=== PATIENT | male | born 1985 | race Caucasian/White ===

== ENCOUNTER 2018-03-15 17:23 | Emergency (ER) | payer SELFPAY ==
[2018-03-15 17:49] VITALS: BP 115/66; TEMP 98.3; O2SAT 98
--- NOTE | 2018-03-15 17:56 | ED.PDOC ---
History of Present Illness - General Chief Complaint: Lower Extremity Injury Time Seen by Provider: 03/15/18 17:48 Source: patient Exam Limitations: no limitations - History of Present Illness Occurred: last week - 4 inch pipe fell onto R foot. Started hurting again today while driving [place]posts Pain - Lower Extremity: moderate: Right Foot Method of Injury: direct blow Improving Factors: immobilization Worsening Factors: movement - weight-bearing Allergies/Adverse Reactions: Allergies NO KNOWN ALLERGY Allergy (Verified 03/15/18 17:49) Home Medications: Ambulatory Orders Tramadol HCl 50 mg PO Q4HR PRN #15 tab 03/15/18 Review of Systems - Review of Systems Constitutional: States: no symptoms reported Musculoskeletal: States: joint pain - R foot, joint swelling Skin: States: no symptoms reported Past Medical History (General) - Patient Medical History Hx Stroke: No Hx Dementia: No Hx of COPD: No Hx Cardiac Disorders: No Hx Congestive Heart Failure: No Hx Hypertension: No Hx Diabetes: No Hx Cancer: No Hx Hepatitis C: No Surgical History: appendectomy - Vaccination History Hx Tetanus, Diphtheria Vaccination: Yes Hx Influenza Vaccination: No Hx Pneumococcal Vaccination: No Immunizations Up to Date: No - Social History Hx Tobacco Use: Yes Hx Chewing Tobacco Use: No Hx Alcohol Use: No Hx Substance Use: No Hx Substance Use Treatment: No Hx Depression: No Feels Threatened In Home Enviroment: No Feels Threatened In a Relationship: No Hx Physical Abuse: No Hx Emotional Abuse: No Hx Suspected Abuse: No - Female History Patient is a Female of Child Bearing Age (10 -59 yrs old): No Patient : No Family Medical History - Family History Mother Family History: Unknown Physical Exam - Physical Exam General Appearance: Alert, No apparent distress Leg: normal inspection, non-tender, no evidence of injury Knee: normal inspection, non-tender, no evidence of injury Ankle: normal inspection, non-tender, no evidence of injury Foot: limited ROM, soft tissue tenderness - on mid dorsum, no discoloration, swelling Neuro/Tendon: normal sensation Mental Status: alert, oriented x 3 Skin: normal color, warm/dry Departure - Departure Clinical Impression: Sprain of right ankle or foot Disposition: Discharge to Home or Self Care Departure Forms: ED Discharge - Pt. Copy, Patient Portal Self Enrollment Instructions: DI for Leg Pain Activity: walking as tolerated Prescriptions: Tramadol HCl 50 mg PO Q4HR PRN #15 tab PRN Reason: Pain Home Medications: Ambulatory Orders Tramadol HCl 50 mg PO Q4HR PRN #15 tab 03/15/18
--- NOTE | 2018-03-15 18:20 | RAD ---
EXAM DESCRIPTION: Foot,Right 3 Views Three views of the right foot CLINICAL HISTORY: 32 years, Male, pipe fell onto foot 1 week ago COMPARISON: None. FINDINGS: There is no acute fracture or dislocation. The bony alignment is normal. There is no focal soft tissue swelling or joint effusion. The tarsal, metatarsal, and phalangeal bones are normal in appearance. The intertarsal, tarsometatarsal, metatarsophalangeal, and interphalangeal joints are grossly normal. IMPRESSION: No acute fracture or dislocation. Electronically signed by: Xenia Block MD 03/15/2018 6:18 PM CDT
== END 2018-03-15 19:13 | disposition home or self-care (01) ==
LOC: ER 17:23
DX: S93.601A Unspecified sprain of right foot, initial encounter (principal); Z87.891 Personal history of nicotine dependence; X58.XXXA Exposure to other specified factors, initial encounter; Y92.9 Unspecified place or not applicable